=== PATIENT | male | born 1980 | race Hispanic/Latino ===

== ENCOUNTER 2016-07-12 18:41 | Emergency (ER) | payer OTHER ==
[~2016-07-12] VITALS: Ht 167.6 cm; Wt 102.5 kg
[~2016-07-12 18:41] MED LIST: LINZESS145 MCG PO; PANTOPRAZOLE SO40 MG PO
--- NOTE | 2016-07-12 19:54 | ED HAND/WRIST INJURY COMPLAINT ---
History of Present Illness General Chief Complaint: Hand or Wrist Injury Stated Complaint: RIGHT HAND PAIN Source: patient Exam Limitations: no limitations Vital Signs & Intake/Output Vital Signs & Intake/Output Vital Signs Date Time Temp Pulse Resp B/P Pulse O2 O2 Flow FiO2 Ox Delivery Rate 07/12 2115 99.4 70 20 127/79 99 Room Air 07/12 1910 99.6 67 20 128/80 98 Room Air ED Intake and Output 07/13 0000 07/12 1200 Intake Total Output Total Balance Patient 226 lb Weight Allergies Coded Allergies: animal dander (WHEEZING 07/12/16) Reconcile Medications Meloxicam (Mobic) 15 MG TABLET 1 TAB PO DAILY tendinitis Oxycodone HCl/Acetaminophen (Percocet 5-325 MG Tablet) 5 MG-325 MG TABLET 1-2 TAB PO Q6P PRN PAIN Triage Note: TRIAGE: PT TO ER C/C PAIN TO RT WRIST AND HAND, ONSET YESTERDAY. NO KNOWN INJURY. STATES "FEELS LIKE A RUBBER BAND SQUEEZING ON IT". REFUSES OFFERED PAIN MEDICATIONS AT TRIAGE. Triage Nurses Notes Reviewed? yes Duration: day(s): (2), constant, continues in ED Timing: recent history Injury Environment: home Severity: moderate, severe Pain/Injury Location: Right: Wrist, Hand. No Modifying Factors: none HPI: 35-year-old male comes into emergency room with complaints of right hand pain and wrist pain is been going on for the past couple days. Sharp throbbing. Swelling. Pain is radiating up her right arm. Denies any fever or chills. Denies any other associated symptoms. (MELIDA CARO) Past History Travel History Traveled to [place] past 21 day No Medical History Any Pertinent Medical History? see below for history Neurological: NONE EENT: NONE Cardiovascular: NONE Respiratory: NONE Gastrointestinal: GERD Hepatic: NONE Renal: NONE Musculoskeletal: NONE Psychiatric: NONE Endocrine: NONE Blood Disorders: NONE Cancer(s): NONE ASSISTANT BROKER/Reproductive: NONE Tetanus Vaccine: 01/24/15 Surgical History Surgical History: N Psychosocial History What is your primary language Maltese Tobacco Use: Never used ETOH Use: denies use Illicit Drug Use: denies illicit drug use Family History Hx Contributory? No (MELIDA CARO) Review of Systems Review of Systems Constitutional: Reports: no symptoms. EENTM: Reports: no symptoms. Respiratory: Reports: no symptoms. Cardiovascular: Reports: no symptoms. GI: Reports: no symptoms. Genitourinary: Reports: no symptoms. Musculoskeletal: Reports: see HPI. Skin: Reports: no symptoms. Neurological/Psychological: Reports: no symptoms. Hematologic/Endocrine: Reports: no symptoms. Immunologic/Allergic: Reports: no symptoms. All Other Systems: Reviewed and Negative (MELIDA CARO) Physical Exam Physical Exam General Appearance: well developed/nourished, mild distress Head: atraumatic Eyes: Bilateral: normal appearance. Ears, Nose, Throat: normal ENT inspection, hearing grossly normal Neck: normal inspection Cardiovascular/Respiratory: no respiratory distress Back: normal inspection Wrist Right: swelling, tenderness Hand Left: normal inspection Hand Right: swelling, tender Neurologic/Tendon: normal sensation, normal motor functions, normal tendon functions, responds to pain, no evidence tendon injury, NO ERYTHEMA, NO WARMTH, POSITIVE Erin TEST, Skin: intact, normal color, warm/dry Lymphatic: no anterior cervical gurmeet (MELIDA CARO) Progress Differential Diagnosis: contusion, dislocation, fracture, gout, septic arthritis , sprain, tenosynovitis Plan of Care: Orders Procedure Date/time Status XRY-WRIST 2 VIEWS RIGHT 07/12 1930 Active XRY-HAND, 3 View RIGHT 07/12 1929 Active Diagnostic Imaging: Viewed by Me: Radiology Read. Discussed w/RAD: Radiology Read. Radiology Impression: SERVICE DATE: 07/12/16 EXAM TYPE: RAD - XRY-HAND, RIGHT; XRY-WRIST 2 VIEWS RIGHT EXAMINATION: 1. Right wrist. 2. Right hand. CLINICAL INFORMATION: Pain. COMPARISON: None. TECHNIQUE: 1. Right wrist. 2. Right hand. FINDINGS: 1. Right wrist. No fracture. No dislocation. Bone and joint normal. 2. Right hand. No fracture. No dislocation. Bone and joint is normal. IMPRESSION: 1. Right wrist. Normal. 2. Right hand. Normal. DICTATED BY: DIMITRIS RUCKER MD DATE/TIME DICTATED:07/12/162048 ROTARY HELPER:KWAN DATE/TIME TRANSCRIBED:07/12/162048 CONFIDENTIAL, DO NOT COPY WITHOUT APPROPRIATE AUTHORIZATION. (MELIDA CARO) Departure Departure Disposition: HOME OR SELF CARE Condition: Stable Clinical Impression Primary Impression: Tendinitis of right wrist Referrals: PATIENT HAS NO PRIMARY CARE DR (PCP/Family) Additional Instructions: Take Mobic and Percocet as prescribed. Follow-up with orthopedic doctor. Return if any other concerns worsening symptoms. Please go over all results of today's visit with your primary care doctor. Contact your primary care doctor to let them know you were here in the emergency room. There may be nonspecific findings which may not be related to your visit today here in the emergency room but may require further evaluation and chronic monitoring by your primary care doctor. If you had a laceration today the chance of foreign body always remains. You should follow-up with your primary care doctor for recheck in 3-5 days for a wound check. If you had an x-ray done there is a chance that a fracture could have been missed on initial read and you should follow-up with your primary care doctor for repeat x-rays if symptoms persist. If your blood pressure was elevated here in the emergency room please have rechecked by her primary care doctor within the next 48 hours by your primary care doctor. If you were prescribed a narcotic here in the emergency room or any type of controlled substances you're not allowed to drive while taking this medication or operate any type of heavy machinery. Narcotics can make you feel lightheaded dizziness nausea and can cause constipation. You may need to draft roller picker a stool softener. Thank you for choosing [facility] emergency room. Please return to the emergency room immediately if you have any other concerns worsening of symptoms. Departure Forms: Customer Survey General Discharge Information Prescriptions: Current Visit Scripts Meloxicam (Mobic) 1 TAB PO DAILY #15 TAB Oxycodone HCl/Acetaminophen (Percocet 5-325 MG Tablet) 1-2 TAB PO Q6P PRN PAIN #10 TAB (MELIDA CARO) PA/COATING SUPERVISOR Co-Sign Statement Statement: ED Attending supervision documentation- [] I saw and evaluated the patient. I have also reviewed all the pertinent lab results and diagnostic results. I agree with the findings and the plan of care as documented in the PA's/COATING SUPERVISOR's documentation. [x] I have reviewed the ED Record and agree with the PA's/COATING SUPERVISOR's documentation. [] Additions or exceptions (if any) to the PAs/COATING SUPERVISOR's note and plan are summarized below: [] (ALYSHA FERMIN,ANAIS Jeffrey) Procedures Splinting Location: right wrist Manual Alignment Performed: No Pre-Made Type: velcro Splint: thumb spica, wrist Splint Applied By: splint applied by me Pre-Proc Neuro Vasc Exam: normal Post-Proc Neuro Vasc Exam: normal (MIAN DELEON,MELIDA)
[2016-07-12] MEDS ORDERED: MOBIC15 M1 PO (20:38)
[2016-07-12] MEDS ORDERED: PERCOCET 5-3251 EACH PO (20:38)
--- NOTE | 2016-07-12 20:54 | RADIOLOGY REPORT ---
EXAMINATION: 1. Right wrist. 2. Right hand. CLINICAL INFORMATION: Pain. COMPARISON: None. TECHNIQUE: 1. Right wrist. 2. Right hand. FINDINGS: 1. Right wrist. No fracture. No dislocation. Bone and joint normal. 2. Right hand. No fracture. No dislocation. Bone and joint is normal. IMPRESSION: 1. Right wrist. Normal. 2. Right hand. Normal.
[2016-07-12 21:16] VITALS: BP 127/79
== END 2016-07-12 21:17 ==
LOC: ERH 18:41
DX: M77.8 Other enthesopathies, not elsewhere classified (principal)
CPT/HCPCS: 73100-RT; 73130-RT